=== PATIENT | male | born 2000 | race Two or more races ===

== ENCOUNTER 2024-06-01 09:50 | Inpatient (IN) | payer OTHER ==
[~2024-06-01] VITALS: Ht 167.6 cm; Wt 106.1 kg
[2024-06-01] MEDS ORDERED: VASOTEC10 MG PO (10:20)
[2024-06-01] MEDS ORDERED: [UNRECOGNIZED DRUG - OTHER] (10:22)
[2024-06-01] MEDS ORDERED: 0.9 % SODIUM CHLORIDE 1,000 ML IV STA (11:14)
[2024-06-01] MEDS ORDERED: FAMOtidine 10 MG/ML (4ML VIAL) IV STA (11:15)
[2024-06-01] MEDS ORDERED: ONDANSETRON HCL 2 MG/ML VIAL IV ONE (11:15)
[2024-06-01] MEDS ORDERED: ONDANSETRON HCL 2 MG/ML VIAL ONE (11:18)
[2024-06-01] MEDS ORDERED: FAMOTIDINE/PF 20 MG/2 ML VIAL ONE (11:19)
[2024-06-01 11:36] LABS: HEMATOCRIT 48.4 % (39.0-48.0); HEMOGLOBIN 16.6 g/dL (13-16.00); MEAN CELL VOLUME 86.1 fL (80.0-100.00); MEAN CORPUSCULAR HEMOGLOBIN 29.5 pg (27.00-32.0); MEAN CORPUSCULAR HGB CONC 34.2 g/dl (32.0-36.0); PLATELET COUNT 274 K/uL (150-450); RED BLOOD COUNT 5.62 M/uL (4.00-6.00); RED CELL DISTRIBUTION WIDTH 13.3 % (11.5-14.5)
[2024-06-01 11:54] LABS: CALCIUM 10.4 mg/dL (8.5-10.1); CREATININE SERUM 1.23 mg/dL (0.70-1.30); GFR 73.58; POTASSIUM 4.38 mEq/L (3.5-5.1)
[2024-06-01] MEDS ORDERED: CIPROFLOXACIN IN 5 % DEXTROSE 400 MG/200 ML PIGGYBAG IV STA (14:13)
[2024-06-01] MEDS ORDERED: METRONIDAZOLE/SODIUM CHLORIDE 500 MG/100 ML PIGGYBACK IV STA (14:14)
[2024-06-01] MEDS ORDERED: CIPROFLOXACIN IN 5 % DEXTROSE 400 MG/200 ML PIGGYBAG IV ONE (14:17)
[2024-06-01] MEDS ORDERED: METRONIDAZOLE/SODIUM CHLORIDE 500 MG/100 ML PIGGYBACK IV ONE (14:18)
[2024-06-01 14:25] LABS: PH,URINE 5.5 (5.0-8.0); URINE APPEARANCE Cloudy; URINE BILIRRUBIN Negative (NEGATIVE); URINE BLOOD Negative; URINE COLOR Dark Yellow; URINE GLUCOSE Negative (NEGATIVE); URINE LEUKOCYTE Negative; URINE NITRATE Negative
[2024-06-01 14:28] LABS: URINE BACTERIA 105.8 uL (0.0-1933); URINE CAST 21.37 uL (0.0-1.40); URINE EPITHELIAL CELLS 74.8 uL (0.0-38.8); URINE RBC 3.8 uL (0.0-20.8); URINE WBC 41.1 uL (0.0-23.2)
[2024-06-01 14:56] LABS: URINE KETONE 40 (NEGATIVE); URINE MUCUS SCANT; URINE PROTEIN 300 (NEGATIVE)
[2024-06-01 15:30] VITALS: BP 109/67; O2SAT 98
[2024-06-01] MEDS ORDERED: METRONIDAZOLE/SODIUM CHLORIDE 100 ML IV SCH (17:10)
[2024-06-01] MEDS ORDERED: FAMOTIDINE/PF 20 MG in 0.9 % SODIUM CHLORIDE 100 ML IV SCH (17:10)
[2024-06-01] MEDS ORDERED: CIPROFLOXACIN IN 5 % DEXTROSE 200 ML IV SCH (17:10)
[2024-06-01] MEDS ORDERED: ONDANSETRON HCL 4 MG in 0.9 % SODIUM CHLORIDE 50 ML IV PRN (17:15)
[2024-06-01] MEDS ORDERED: 0.9 % SODIUM CHLORIDE 1,000 ML IV SCH (17:15)
[2024-06-01] MEDS ORDERED: MORPHINE SULFATE 2 MG/ML CARTRIDGE IV PRN (17:30)
[2024-06-01] MEDS ORDERED: ENALAPRILAT DIHYDRATE 1.25 MG/ML VIAL IV PRN (17:30)
[2024-06-01 17:54] VITALS: BP 109/67
[2024-06-01 20:12] VITALS: BP 149/78; O2SAT 98
[2024-06-02 02:02] VITALS: BP 118/55
[2024-06-02 08:06] LABS: HEMATOCRIT 44.7 % (39.0-48.0); HEMOGLOBIN 15.7 g/dL (13-16.00); MEAN CELL VOLUME 86.7 fL (80.0-100.00); MEAN CORPUSCULAR HEMOGLOBIN 30.3 pg (27.00-32.0); PLATELET COUNT 256 K/uL (150-450); RED BLOOD COUNT 5.16 M/uL (4.00-6.00)
[2024-06-02 09:00] VITALS: BP 125/81
[2024-06-02] MEDS ORDERED: LACTOBACILLUS ACIDOPHILUS 1 CAP CAP PO SCH (17:00)
[2024-06-02] MEDS ORDERED: METROnidazole 500 MG TABLET PO SCH (17:00)
[2024-06-02 17:56] VITALS: BP 140/86; O2SAT 98
[2024-06-02] MEDS ORDERED: CIPROFLOXACIN HCL 500 MG TABLET PO SCH (21:00)
[2024-06-03 01:50] VITALS: BP 116/71; O2SAT 98
[2024-06-03 08:37] VITALS: BP 130/84; O2SAT 99
== END 2024-06-03 13:27 | disposition home or self-care (01) | DRG 392 ==
LOC: ER 09:52 → MEDJ 17:33
PROVIDERS: General Practice; ADMIT Internal Medicine; ATTEND Internal Medicine
PROC: BW21ZZZ Computerized Tomography (CT Scan) of Abdomen and Pelvis (ICD-10-PCS; principal; 2024-06-01)
DX: K52.9 Noninfective gastroenteritis and colitis, unspecified (principal); D72.829 Elevated white blood cell count, unspecified

== ENCOUNTER 2024-09-23 12:11 | Outpatient (CLI) | payer OTHER ==
[~2024-09-23 12:11] MED LIST: VASOTEC10 MG PO; [UNRECOGNIZED DRUG - OTHER]
[2024-09-23 13:01] LABS: HEMATOCRIT 44.1 % (39.0-48.0); HEMOGLOBIN 14.9 g/dL (13-16.00); MEAN CELL VOLUME 86.2 fL (80.0-100.00); MEAN CORPUSCULAR HEMOGLOBIN 29.1 pg (27.00-32.0); MEAN CORPUSCULAR HGB CONC 33.8 g/dl (32.0-36.0); PLATELET COUNT 240 K/uL (150-450); RED BLOOD COUNT 5.12 M/uL (4.00-6.00); RED CELL DISTRIBUTION WIDTH 13.9 % (11.5-14.5)
== END 2024-09-23 12:12 | disposition home or self-care (01) ==
LOC: LAB 12:11
DX: J11.1 Influenza due to unidentified influenza virus with other respiratory manifestations (principal); J20.9 Acute bronchitis, unspecified; R50.9 Fever, unspecified; R05.9 Cough, unspecified

== ENCOUNTER 2024-10-26 23:52 | Emergency (ER) | payer OTHER ==
[~2024-10-26] VITALS: Ht 167.6 cm; Wt 95.3 kg
[2024-10-27] MEDS ORDERED: PROMETHAZINE HCL 50 MG/ML AMPUL IM STA (01:03)
[2024-10-27] MEDS ORDERED: FAMOTIDINE/PF 20 MG/2 ML VIAL IV PUSH STA ×2 (01:04→07:45)
[2024-10-27] MEDS ORDERED: PROMETHAZINE HCL 50 MG/ML AMPUL IM ONE (01:08)
[2024-10-27] MEDS ORDERED: FAMOTIDINE/PF 20 MG/2 ML VIAL ONE ×2 (01:08→07:54)
[2024-10-27] MEDS ORDERED: 0.9 % SODIUM CHLORIDE 1,000 ML IV ONE (01:15)
[2024-10-27 01:31] LABS: HEMATOCRIT 44.6 % (39.0-48.0); HEMOGLOBIN 15.5 g/dL (13-16.00); MEAN CELL VOLUME 85.1 fL (80.0-100.00); MEAN CORPUSCULAR HEMOGLOBIN 29.7 pg (27.00-32.0); MEAN CORPUSCULAR HGB CONC 34.9 g/dl (32.0-36.0); PLATELET COUNT 242 K/uL (150-450); RED BLOOD COUNT 5.24 M/uL (4.00-6.00); RED CELL DISTRIBUTION WIDTH 14.8 % (11.5-14.5)
[2024-10-27 02:36] LABS: ALBUMIN 4.4 gm/dL (3.4-5.0); BILIRUBIN TOTAL 0.49 mg/dL (0.3-1.2); CALCIUM 9.9 mg/dL (8.5-10.1); CREATININE SERUM 1.04 mg/dL (0.70-1.30); GFR 88.5; POTASSIUM 3.8 mEq/L (3.5-5.1); TOTAL PROTEIN 8.4 gm/dL (6.4-8.2)
[2024-10-27] MEDS ORDERED: ONDANSETRON HCL 2 MG/ML VIAL IV STA (03:35)
[2024-10-27] MEDS ORDERED: ONDANSETRON HCL 2 MG/ML VIAL ONE (03:38)
[2024-10-27] MEDS ORDERED: HYOSCYAMINE SULFATE 0.125 MG TAB.SUBL SL STA (07:45)
[2024-10-27] MEDS ORDERED: HYOSCYAMINE SULFATE 0.125 MG TAB.SUBL ONE (07:54)
[2024-10-27 08:13] LABS: HEMATOCRIT 43.1 % (39.0-48.0); HEMOGLOBIN 14.6 g/dL (13-16.00); MEAN CELL VOLUME 86.4 fL (80.0-100.00); MEAN CORPUSCULAR HEMOGLOBIN 29.3 pg (27.00-32.0); MEAN CORPUSCULAR HGB CONC 33.9 g/dl (32.0-36.0); PLATELET COUNT 221 K/uL (150-450); RED BLOOD COUNT 4.99 M/uL (4.00-6.00); RED CELL DISTRIBUTION WIDTH 14.5 % (11.5-14.5)
[2024-10-27 08:42] LABS: URINE APPEARANCE Clear; URINE BILIRRUBIN Negative (NEGATIVE); URINE BLOOD Negative; URINE COLOR Yellow; URINE GLUCOSE Negative (NEGATIVE); URINE KETONE Negative (NEGATIVE); URINE LEUKOCYTE Negative; URINE NITRATE Negative; URINE PROTEIN Negative (NEGATIVE); URINE UROBILINOGEN 0.2 E.U./dl
[2024-10-27 08:43] LABS: URINE BACTERIA 7.3 uL (0.0-1933); URINE EPITHELIAL CELLS 5.1 uL (0.0-38.8); URINE RBC 3.2 uL (0.0-20.8); URINE WBC 5.1 uL (0.0-23.2)
== END 2024-10-27 12:12 | disposition home or self-care (01) ==
LOC: ER 23:54
PROVIDERS: General Practice
DX: K52.89 Other specified noninfective gastroenteritis and colitis (principal); I10 Essential (primary) hypertension